=== PATIENT | female | born 1985 | race Caucasian/White ===

== ENCOUNTER → 2016-08-14 | Outpatient (CLI) | payer BC ==
[2016-08-14 10:45] LABS: BASOPHILS # (AUTO) 0.04 10*3/UL; BASOPHILS % (AUTO) 0.7 % (0-1); EOSINOPHILS % (AUTO) 1.7 % (0-8); HEMATOCRIT 43.8 % (37.0-47.0); HEMOGLOBIN 14.4 g/dL (12.0-16.0); IMM GRAN % (AUTO) 0.2 % (0-5); IMM GRAN# (AUTO) 0.01 10*3/UL; LYMPHOCYTES # (AUTO) 1.53 10*3/uL; MEAN CORPUSCULAR HEMOGLOBIN 28.1 PG (27-31); MEAN CORPUSCULAR HGB CONC 32.9 g/dL (33-37); MEAN PLATELET VOLUME 10.9 FL (7.4-12.2); MONOCYTES % (AUTO) 8.5 % (5-15); NEUTROPHILS % (AUTO) 62.9 % (50-80); RDW COEFFICIENT OF VARIATION 14.2 % (11.5-14.5); RED BLOOD COUNT 5.12 10^6/uL (4.20-5.40); WHITE BLOOD COUNT 5.88 10^3/uL (4.8-10.8)
[2016-08-14 10:51] LABS: PLATELET MORPHOLOGY COMMENT NORMAL MORPHOLOGY (NORM)
[2016-08-14 10:55] LABS: AMYLASE 96 U/L (30-110); ASPARTATE AMINO TRANSFERASE 24 IU/L (8-39); BLOOD UREA NITROGEN 16 mg/dL (7-22); CALCIUM 9.5 mg/dL (8.7-10.7); CHLORIDE 102 meq/L (98-112); CREATININE 0.8 mg/dL (0.50-1.20); EST GLOMERULAR FILTRATION > 60 (>60 ml/min/1.73m(2)); GLUCOSE 92 mg/dL (78-110); POTASSIUM 3.9 meq/L (3.8-5.2); SODIUM 138 meq/L (135-145); TOTAL PROTEIN 7.4 g/dL (6.1-8.0)
--- NOTE | 2016-08-14 13:40 | DI ---
History: Abdominal pain. Prior appendectomy. Procedure: The study was performed in the presence of intravenous contrast material, 75 cc of Isovue- 300. Images obtained from the heart to the pubic symphysis Dose report CTDI 5.5, DLP 259.5 findings: Lung base unremarkable for nodule or infiltrate. No intra-abdominal free air observed. Bony structures are intact. No cardiac enlargement seen Liver spleen pancreas kidneys adrenal glands all appear normal No adenopathy present. No ascites observed in the abdomen. Gallbladder normal. No stones or inflammat ion identified. Small bowel loops normal Moderate fecal retention in the colon especially on the right side. No hernia present. Normal-appearing uterus. Both ovaries show some follicles. There does appear to be some free fluid in the right lower quadrant near the cul-de-sac. Bladder normal. No diverticula identified. Impression: 1. Moderate fecal retention is seen on the right side. 2. Prior appendectomy. 3. Some fluid around the right ovary. Numerous follicles seen bilaterally. Consider pelvic ultrasound to evaluate for follicles and possible ovarian torsion which cannot be demonstrated on this examinat ion. No ovarian enlargement is seen. Upper abdomen unremarkable
== END ==
LOC: MOB LAB 10:12
PROVIDERS: ATTEND Physician Assistant Medical
DX: R10.84 Generalized abdominal pain (principal)
CPT/HCPCS: 36415; 74177; 80053; 82150; 83690; 85025

== ENCOUNTER → 2016-12-12 | Outpatient (CLI) | payer BC | LOC: MOB LAB 16:52 | PROVIDERS: ATTEND Physician Assistant | DX: R10.84 Generalized abdominal pain (principal); R31.9 Hematuria, unspecified | CPT/HCPCS: 87077; 87088; 87186 ==

== ENCOUNTER 2016-12-13 22:23 | Emergency (ER) | payer BC ==
[2016-12-13] MEDS ORDERED: Sodium Chloride 0.9% 1,000 ML PRIMARY IV ONE (22:45)
[2016-12-13] MEDS ORDERED: ONDANSETRON 4 MG/2 ML VIAL IVP ONE (22:45)
[2016-12-13] MEDS ORDERED: KETOROLAC 15 MG/1 ML VIAL IVP ONE (22:45)
--- NOTE | 2016-12-13 22:51 | PDOC ---
Female Problem HPI - General Chief Complaint: Genitourinary Complaint Stated Complaint: LEFT FLANK PAIN Date Seen by Provider: 12/13/16 Time Seen by Provider: 22:46 Source: POSITIVE: Patient, Spouse Exam Limitations: POSITIVE: No limitations Nurse's Notes Reviewed & Considered: Yes - History of Present Illness Initial Comments: Patient comes in today with a chief complaint of left upper quadrant abdominal pain. Patient was seen by her primary care physician yesterday diagnosed with pyelonephritis and started on Bactrim DS. She has taken 3 doses at this time and had no improvement of her pain. She's been running low-grade fevers to 99.2 with chills and sweats. She does have a headache, she does have myalgias, denies any cough or shortness of breath. When she does have a cough her pain is greatly exacerbated. She denies having any dysuria or hematuria. She denies nausea vomiting or diarrhea. Body Location Affected: REPORTS: Abdomen Timing: REPORTS: Constant, Getting Worse Duration: <1 week Severity: Moderate Quality: REPORTS: Cramping, "Pain", Sharpness, Stabbing, Throbbing Location of Pain: REPORTS: Left, Abdominal Pain, Low Back Pain : 1 Para: 1 Sexual History: REPORTS: Active Similar Symptoms Previously: Yes Recent Care Received: REPORTS: Recently Seen, Treated by MD Any Prior Injuries Related to Current Complaint?: No - Patient Home Medications Home Medications: Home Medications Sulfamethoxazole/Trimethoprim [Bactrim Ds Tablet] 1 tab PO BID #14 tab 12/12/16 - Patient Allergies Allergies/Adverse Reactions: Allergies Allergy/AdvReac Type Severity Reaction Status Date / Time No Known Allergies Allergy Verified 12/13/16 22:45 Past Medical History - heen HEENT History: Denies History, Other (please comment) Additional HEENT History: TONSILLECTOMY Cardiovascular History: Denies History Respiratory History: Denies History Gastrointestinal History: Denies History, Other (please comment) Additional Gastrointestinal History: APPY Genitourinary History: Denies History Endocrine History: Denies History Musculoskeletal History: Denies History Prosthesis or Implant: No Neurological History: Denies History Blood Disorders: Denies History Psychiatric History: Anxiety Disorders History of Sexually Transmitted Diseases: No Cancer History: Denies History History of MDRO: No History of Other Communicable Diseases: No Alcohol Use: None Substance Use Type: None Previous Surgical History: Yes Type / Date of Surgery: TONSILS. APPY. L Knee Scope. C SECTION Anesthesia Reactions: No Malignant Hyperthermia: No Significant Family History: Asthma, Cancer, Diabetes ROS - Limitations ROS Limitations: No Limitations Constitution: REPORTS: Chills, Fever, Diaphoresis Cardiovascular: REPORTS: Denies Cardiac Symptoms Respiratory: REPORTS: Denies Resp Symptoms Neurological: REPORTS: Headache Gastrointestinal: REPORTS: Abdominal Pain Endocrine: REPORTS: Denies Symptoms Musculoskeletal: REPORTS: Back Pain, Muscle Aches Genitourinary: REPORTS: Denies Symptoms Eyes: REPORTS: Denies Symptoms ENT: REPORTS: Denies Symptoms Skin: REPORTS: Denies Skin Symptoms Lympathic: REPORTS: Denies Lympathic Symptoms Immunologic: POSITIVE: Denies Symptoms Psychiatric: POSITIVE: Denies Psych Symptoms Female Genitourinary Exam - General Appearance General Appearance: POSITIVE: Alert, Cooperative, No Evidence of Trauma, Moderate Distress - HEENT HEENT: POSITIVE: Head Inspection Nml, Eyes Inspection Nml, Ears Inspection Nml, Nose Inspection Nml, PERRL, EOMI - Neck Neck: POSITIVE: Normal Inspection, No Apparent Injury - Respiratory Respiratory: POSITIVE: No Respiratory Distress, Breath Sounds Normal, Chest Non- Tender - Cardiovascular Cardiovascular: POSITIVE: Regular Rate and Rhythm, Heart Sounds Normal - Abdomen Abdomen: POSITIVE: Soft, Normal Bowel Sounds, Tenderness (Left upper quadrant, radiation to left lower quadrant) - Back Back: POSITIVE: CVA Tenderness (L) - Skin Skin: POSITIVE: Intact, Normal For Race, Warm, Dry, No Rash - Extremities Extremity: Non-Tender: (All Extremities), Normal ROM: (All Extremities), Normal Inspection: (All Extremities), Pelvis Stable: (All Extremities) - Neurological / Psychological Neurological: POSITIVE: Affect Apporpriate, Oriented X3, Motor Normal, Sensation Normal Female Genitourinary Progress - Results Reviewed by me Xrays/CTs/US Reviewed by me: Yes Discussed with Radiologist: Yes Lab Results Reviewed: Yes Lab Results:: Laboratory Results 12/13/16 Range/Units 23:00 WBC 9.10 (4.8-10.8) 10^3/uL RBC 4.95 (4.20-5.40) 10^6/uL Hgb 14.4 (12.0-16.0) g/dL Hct 42.4 (37.0-47.0) % MCV 85.7 (81-99) FL MCH 29.1 (27-31) PG MCHC 34.0 (33-37) g/dL RDW Std Deviation 41.1 (39-50) fL RDW Coeff of Patricia 13.4 (11.5-14.5) % Plt Count 229 (140-350) 10*3/uL MPV 10.7 (7.4-12.2) FL Immature Gran % (Auto) 0.3 (0-5) % Neut % (Auto) 69.4 (50-80) % Lymph % (Auto) 18.4 (10-50) % [place] % (Auto) 10.5 (5-15) % Eos % (Auto) 1.1 (0-8) % Baso % (Auto) 0.3 (0-1) % Immature Gran # (Auto) 0.03 10*3/UL Neut # (Auto) 6.31 10*3/UL Lymph # (Auto) 1.67 10*3/uL [place] # (Auto) 0.96 H (0.3-0.8) 10*3/UL Eos # (Auto) 0.10 10*3/UL Baso # (Auto) 0.03 10*3/UL WBC Morphology Comment Normal morphology (NORM) Plt Morphology Comment Normal morphology (NORM) RBC Morph Comment Normal morphology (NORM) Sodium 138 (135-145) meq/L Potassium 3.4 L (3.8-5.2) meq/L Chloride 104 (98-112) meq/L Carbon Dioxide 21 L (23-33) meq/L Anion Gap 13 (5-20) BUN 12 (7-22) mg/dL Creatinine 1.0 (0.50-1.20) mg/dL Estimated GFR > 60 (>60 ml/min/1.73m(2)) BUN/Creatinine Ratio 12.00 (6-20) Glucose 84 (78-110) mg/dL Calculated Osmolality 284.0 (267-292) mOsm/kg Calcium 9.0 (8.7-10.7) mg/dL Magnesium 2.1 (1.6-2.4) mg/dL Total Bilirubin 0.9 (0.3-1.2) mg/dL AST 35 (8-39) IU/L ALT 34 (9-52) IU/L Alkaline Phosphatase 73 (38-126) IU/L C-Reactive Protein 2.2 H (0.0-0.9) mg/dL Total Protein 7.8 (6.1-8.0) g/dL Albumin 4.3 (3.5-4.8) g/dL Globulin 3.5 (2.50-4.10) g/dL Albumin/Globulin Ratio 1.20 L (1.3-2.0) mg/g Serum HCG, Qual Negative Ur Collection Type Clean catch urine Urine Color Yellow Urine Clarity Clear (CLEAR) Urine pH 6.5 (5.0-8.5) Ur Specific [place] 1.015 (1.005-1.030) Urine Protein Negative (NEG) mg/dl Urine Glucose (UA) Negative (NEG) mg/dL Urine Ketones >=160 (NEG) Urine Occult Blood Negative (NEG) Urine Nitrate Negative (NEG) Urine Bilirubin Negative (NEG) Urine Urobilinogen 0.2 (0.2) EU/dL Ur Leukocyte Esterase Negative (NEG) Ur Culture Indicated? Culture not set - Patient's Progress Pain Medication Addressed: POSITIVE: Yes Re-Examine Time: 00:04 Status: POSITIVE: Improved MDM / ED Course: Patient was evaluated, IV started, blood drawn and sent to the lab for studies, urine collected sent to the lab for studies, ultrasound of her urinary tract was obtained. She received a liter of normal saline, Toradol, and Zofran. This resulted in significant improvement of her pain. Findings: Urinalysis is negative. CBC is unremarkable. Comprehensive metabolic panels within normal limits. Ultrasound reveals no echogenic shadowing stones or recurrent sonographic evidence of obstructed uropathy however there are multiple echogenic foci in the left renal pelvis. These do not shadow and possibly represent renal fat versus small nonobstructive stones. There is no solid or cystic renal masses in either kidney. Assessment: #1 urinary tract presently being treated with Bactrim DS. #2 renal colic with possible nonobstructive stones in the left kidney. Plan: Discharge home, dispense [place] prescribed #20. Continue with Bactrim and follow up with primary care physician. Return to the emergency room if fevers, increased pain, or hematuria. - Consult Counseled: POSITIVE: Patient, Family, RE: Lab Results, RE: Radiology Results, RE : DX, RE: Need for F/U Patient Care Time - Estimated PCT Patient Care Time (In Minutes): 30 Vital Signs - VS Reviewed Vital Signs Reviewed: Yes Discharge Clinical Impression: Urinary tract infectious disease, Renal colic Discharge Disposition: Discharged to Home Condition: Stable Patient Instructions Given at Discharge: Urinary Tract Infection in Women (ED) , Renal Colic (ED)
[2016-12-13 23:08] LABS: BASOPHILS # (AUTO) 0.03 10*3/UL; BASOPHILS % (AUTO) 0.3 % (0-1); EOSINOPHILS % (AUTO) 1.1 % (0-8); HEMATOCRIT 42.4 % (37.0-47.0); HEMOGLOBIN 14.4 g/dL (12.0-16.0); LYMPHOCYTES # (AUTO) 1.67 10*3/uL; MEAN CORPUSCULAR HEMOGLOBIN 29.1 PG (27-31); MEAN CORPUSCULAR VOLUME 85.7 FL (81-99); MEAN PLATELET VOLUME 10.7 FL (7.4-12.2); MONOCYTES # (AUTO) 0.96 10*3/UL (0.3-0.8); MONOCYTES % (AUTO) 10.5 % (5-15); NEUTROPHILS # (AUTO) 6.31 10*3/UL; NEUTROPHILS % (AUTO) 69.4 % (50-80); PLATELET MORPHOLOGY COMMENT NORMAL MORPHOLOGY (NORM); RBC MORPHOLOGY COMMENT NORMAL MORPHOLOGY (NORM); RED BLOOD COUNT 4.95 10^6/uL (4.20-5.40); WBC MORPHOLOGY COMMENT NORMAL MORPHOLOGY (NORM)
[2016-12-13 23:09] LABS: BILIRUBIN,URINE NEGATIVE (NEG); CLARITY,URINE CLEAR (CLEAR); COLOR,URINE YELLOW; GLUCOSE, URINE (UA) NEGATIVE (NEG); NITRATE,URINE NEGATIVE (NEG); OCCULT BLOOD,URINE NEGATIVE (NEG); PH,URINE 6.5 (5.0-8.5); PROTEIN,URINE NEGATIVE (NEG); URINE SAMPLE TYPE CLEAN CATCH URINE; UROBILINOGEN,URINE 0.2 EU/dL (0.2)
[2016-12-13 23:22] LABS: BLOOD UREA NITROGEN 12 mg/dL (7-22); C-REACTIVE PROTEIN 2.2 mg/dL (0.0-0.9); EST GLOMERULAR FILTRATION > 60 (>60 ml/min/1.73m(2)); MAGNESIUM 2.1 mg/dL (1.6-2.4); SERUM ALBUMIN 4.3 g/dL (3.5-4.8)
[2016-12-14] MEDS ORDERED: HYDROcodone-APAP 5 MG -325 MG TABLET PO SCH (00:15)
[2016-12-14 05:51] VITALS: RESP 18; TEMP 97.8
== END 2016-12-14 00:20 | disposition home or self-care (01) ==
LOC: ER 22:23
DX: N39.0 Urinary tract infection, site not specified (principal); N23 Unspecified renal colic; R51 Headache; M79.1 Myalgia; R50.9 Fever, unspecified; M54.5 Low back pain; R10.12 Left upper quadrant pain
CPT/HCPCS: 76775; 80053; 81003; 83735; 84703; 85025; 86140; 96361; 96374; 96375; 99282; 99283; J1885; J2405; J7030

== ENCOUNTER → 2017-02-19 | Outpatient (CLI) | payer BC ==
--- NOTE | 2017-02-19 15:23 | DI ---
LEFT BREAST ULTRASOUND, 02/19/2017 2:26 PM: Clinical History: Palpable left breast lump at the 6:00 position. Scans are performed by the technologist and myself through all four quadrants of the left breast with the high resolution linear array probe. Color Doppler ultrasound was also performed. Scans reveal extensive fibroglandular breast tissue. The patient was able to localize the breast lump and with the patient in the supine position, the area she indicated was closer to the 5:00 position. Scans directly over this area showed only fibroglandular breast tissue without evidence of an abnorm al solid or cystic mass. This patient is quite thin and there are portions of the breast that are dev oid of any fatty tissue making palpation of fibrocystic "lumps" very easy. The area of question is a focus of fibroglandular tissue with a convexity. Scans through the remainder of the breasts show no s olid masses. There is a very small 5 mm diameter cyst along the inferior margin of the nipple at the 6:00 position. Follow Up: The patient was advised to perform monthly self breast examinations to monitor the lesion over the next 2 - 3 months. She was instructed to contact her health care provider promptly if the vincent mp becomes larger during that time. Otherwise, if the lump disappears or remains stable, she was advi sed to have a follow-up breast clinical examination with her health care provider in approximately 2 - 3 months to verify those findings of the patient. If at the time of the breast clinical examination there is still clinical concern regarding this lesion, then a diagnostic left mammogram and possible surgical consultation would be indicated. BIRADS Category: 1. Negative. The area of question represents a focus of fibroglandular breast tissue with a convex contour. Assessment: Negative.
== END ==
LOC: US 14:22
PROVIDERS: ATTEND Nurse Practitioner Family
DX: N63 Unspecified lump in breast (principal)
CPT/HCPCS: 76641